=== PATIENT | male | born 1945 | race Caucasian/White ===

== ENCOUNTER 2019-01-30 13:59 | Inpatient (IN) ==
--- NOTE | 2019-01-30 14:25 | EKG Report ---
Test Performed on : 01/30/2019 2:04:23 PM Test Reason : a-fib Blood Pressure : / mmHG Vent. Rate : 162 BPM Atrial Rate : 441 BPM P-R Int : 000 ms QRS Dur : 070 ms QT Int : 278 ms P-R-T Axes : 000 059 -34 degrees QTc Int : 456 ms Atrial fibrillation. with rapid ventricular response. Nonspecific ST abnormality Abnormal QRS-T angle, consider primary T wave abnormality Abnormal ECG When compared with ECG of 26-FEB-2018 07:54, Nonspecific T wave abnormality no longer evident in Anterolateral leads Unconfirmed Result
--- NOTE | 2019-01-30 14:26 | ED EKG INTERP ---
This chart was entered by Glen Miller Scribe, acting as scribe for Raul Beltran MD. EKG Interpretation - EKG Time of EKG reading by physician:: 14:04 EKG Read and Signed by:: Raul Beltran EKG Interpretation (*Must complete 3 of following elements*): Abnormal Rate: 162 Rhythm: Atrial fibrillation with rapid ventricular response QRS: other (Abnormal QRS-T angle, consider primary T wave abnormality) ST Wave: non-specific ST changes Comments: Abnormal ECG Attestation - Physician/ ALLYSON Attestation Patient care was provided by Advanced Practice Provider:: No The physician spent face to face time with patient:: Yes Advanced Practice Provider documentation review:: Supervising physician onsite and consulted in the evaluation and care of this patient. The physician did have a face to face encounter with the patient. This chart was documented by the indicated scribe, (Glen Miller Scribe) and accurately reflects the services I performed and decisions made by me, Raul Beltran MD, as attested by the provider's signature.
[2019-01-30 14:38] LABS: INR 2.32; PROTIME 27.1 Seconds (11.0-16.0)
[2019-01-30 14:39] LABS: PTT 39.3 Seconds (22.3-41.8)
--- NOTE | 2019-01-30 14:39 | Diag Imaging Result Doc PS360 ---
EXAM: CHEST-1 VIEW HISTORY: cp TECHNIQUE: Single view COMPARISON: 02/22/2018 FINDINGS: The lungs are well expanded. The heart is mildly prominent. The vessels are not distended. There are no infiltrates. No effusion identified. IMPRESSION: Mild cardiomegaly Electronically signed by Bandar Moon 01/30/2019 2:36 PM
[2019-01-30] MEDS: CARDIZEM 125 MG/D5W 125 MG/125 ML IVPB IV SCH ×2 (14:42→23:14)
[2019-01-30 14:56] LABS: BASO# 0.02 X1000 (0.0-0.2); BASO% 0.2 % (0.0-0.8); EOS# 0.07 X1000 (0.0-0.7); EOS% 0.6 % (0.0-10.0); HEMOGLOBIN 14.2 g/dL (14.0-18.0); IMM GRAN# 0.03 X1000 (0.0-0.04); IMM GRAN% 0.3 % (0.0-0.5); LYMPH% 17.3 % (20.5-51.1); MCHC 32.3 g/dL (33-37); MCV 80.4 FL (81-99); MONO% 8.7 % (1.7-9.3); MPV 10.7 FL (7.4-10.4); NEUT# 8.44 X1000 (1.4-6.5); NEUT% 72.9 % (42.2-75.2); PLT 277 X1000 (130-400); RBC 5.47 XMIL (4.7-6.1); RDW 16.8 % (11.5-14.5); WBC 11.56 X1000 (4.8-10.8)
[2019-01-30 15:02] LABS: AGAP 11; ALB/GLOB RATIO 1.5; ALBUMIN 4.1 g/dL (3.5-5.0); ALKALINE PHOSPHATASE 94 U/L (32-122); BUN 15 mg/dL (8-22); CHLORIDE 101 mmol/L (98-107); COSMO 278; CREATININE 0.9 mg/dL (0.7-1.2); ESTIMATED GFR > 60; GLUCOSE 100 mg/dL (70-104); GOT 23 U/L (10-34); GPT 78 U/L (10-44); POTASSIUM 4.5 mmol/L (3.5-5.1); SODIUM 139 mmol/L (136-145); TCO2 27 mmol/L (25-35); TOTAL BILIRUBIN 1.18 mg/dL (0.20-1.00); TOTAL PROTEIN 6.9 g/dL (6.3-8.3)
--- NOTE | 2019-01-30 17:10 | PROVIDER DOCUMENTATION ---
This chart was entered by Glen Miller Scribe, acting as scribe for Raul Beltran MD. HPI-Cardiac General - General Chief Complaint: Palpitations Stated Complaint: a fib sent over by DR Time Seen by Provider: 01/30/19 14:18 Source: patient Allergies/Adverse Reactions: Patient Allergies Allergy/AdvReac Type Severity Reaction Status Date / Time celecoxib [From Celebrex] Allergy Severe SWELLING Verified 02/22/18 18:52 Sulfa (Sulfonamide Allergy Severe SWELLING Verified 02/22/18 18:52 Antibiotics) [Sulfa(Sulfonamide Antibiotics)] Home Medications: Home Medication List Medication Instructions Recorded Confirmed Last Taken Type Digoxin [Lanoxin] 125 microgm PO DAILY #0 tablet 05/30/12 01/30/19 11/03/15 19:00 Rx Zolpidem Tartrate [Ambien Cr] 12.5 mg PO HS 10/29/15 01/30/19 11/03/15 21:30 History Diltiazem HCl [Cartia Xt] 120 mg PO DAILY #90 cap.er.24h 02/28/18 01/30/19 Unknown Rx Metoprolol Succinate [Toprol Xl] 50 mg PO DAILY #90 tab.er.24h 02/28/18 01/30/19 Unknown Rx Rivaroxaban [Xarelto] 20 mg PO DAILY #0 02/28/18 01/30/19 10/28/15 17:00 Rx - History of Present Illness-Cardiac Nature of Presenting Problem: Pt is a 73 yom who presents to the ED with A-fib. The pt was sent to the ED by his doctor. Pt states that he began feeling a tightness and pressure in his chest yesterday morning. Pt states that the pressure was felt in the center of his chest without any radiation. Pt reports a hx of a-fib and peptic ulcers. Pt denies missing any of his heart medication. Pt states that he currently feels claustrophobic in the ED room. Location: reports: central Quality of Pain: reports: pressure, tightness Onset/Duration: 24 hours ago Timing: still present, improving History of arrythmia: reports: A-Fib Recent use of:: reports: no stimulants Associated Symptoms: reports: denies symptoms Similar Symptoms Previously?: No Recently Seen Here or By Another Healthcare Provider: No Review of Systems - Adult - REVIEW OF SYSTEMS - ADULT Constitutional: reports: see HPI. denies: chills, fever, fatique, night sweats Eyes: reports: no symptoms reported Ears, Nose, Mouth & Throat: reports: no symptoms reported Cardiovascular: reports: see HPI, irregular heart rate (A-fib). denies: edema, palpitations, syncope Respiratory: reports: no symptoms reported Gastrointestinal: reports: no symptoms reported Genitourinary: reports: no symptoms reported Musculoskeletal: reports: no symptoms reported Integumentary: reports: no symptoms reported Neurological: reports: no symptoms reported Psychiatric: reports: no symptoms reported Endocrine: reports: no symptoms reported Hematologic/Lymphatic: reports: no symptoms reported Allergic/Immunologic: reports: no symptoms reported All Other Systems: Reviewed and Negative Past History - Adult - PAST MEDICAL HISTORY-ADULT Review of Records: reports: Old Records Reviewed, Nursing Assessment Review, Medications Reviewed, Social history reviewed & non-contributory. Major Childhood Illnesses: reports: denies history Cardiovascular: reports: A-Fib Respiratory: reports: denies history Gastrointestinal: reports: GERD (Peptic ulcers) Obstetrical/Gynecological: reports: denies history Genitourinary: reports: denies history Musculoskeletal: reports: denies history Neurological: reports: denies history Psychiatric: reports: denies history Endocrine/Immune: reports: denies history Other Conditions: reports: denies history - IMMUNIZATION STATUS Childhood Immunizations: See Nurse Assessment Flu Vaccine: See Nurse Assessment - FAMILY HISTORY Family History: reviewed, not pertinent - SOCIAL HISTORY Smoking: denies, non-smoker Substance Use: none/never Alcohol Use Frequency: never Physical Exam-General - PHYSICAL EXAM-ADULT Initial Vital Signs Reviewed: Yes - CONSTITUTIONAL General Appearance: appears well, alert, mild distress - EYES Eyes: PERRL/EOMI. negative: meningismus, sclera injected, scleral icterus - NECK Neck: non-tender, full range of motion. negative: limited range of motion, lymphadenopathy, meningismus - RESPIRATORY Respiratory: chest non-tender, lungs clear, normal breath sounds, no pleuratic chest pain, no respiratory distress. negative: accessory muscle use, crackles, rales, stridor, wheezing - CARDIOVASCULAR Cardiovascular: normal peripheral pulses, no edema, no gallop, no JVD, no murmur . negative: bradycardia, diastolic murmur, gallop/S3, extra beats - GASTROINTESTINAL (ABDOMEN) Abdominal Exam: non tender, soft. negative: guarding, rigid, rebound - MUSCULOSKELETAL Extremity: normal range of motion, non-tender. negative: deformity, erythema, inflammation, swelling, tenderness - SKIN Integumentary: normal color, warm/dry. negative: ecchymosis, erythema, jaundice, laceration(s) - NEUROLOGIC Neurologic: grossly normal, no motor/sensory deficits. negative: abnormal gait, facial droop, focal weakness, motor weakness, sensory deficit - PSYCHIATRIC Psych/Mental Status: normal mood/affect, oriented x 3. negative: disoriented x 3, anxious, disheveled, paranoid - HEART Score HEART Score: History: Moderately Suspicious HEART Score: ECG: Non-Specific Repolarization Disturbance/LBBB/PM HEART Score: Age: > or = 65 Years HEART Score: Risk Factors for Atherosclerotic Disease: 1 or 2 Risk Factors HEART Score: Troponin: < or = Normal Limit Total HEART Score:: 5 Progress - PLAN OF CARE/RESULTS Progress/Plan/Lab Results: Vital Signs - 8 hr 01/30/19 14:08 01/30/19 14:28 01/30/19 14:30 Temperature 97.9 F Pulse Rate 160 H 150 H 173 H Respiratory Rate 22 22 18 Blood Pressure 123/86 O2 Sat by Pulse Oximetry 97 96 01/30/19 14:40 01/30/19 14:46 01/30/19 14:50 Temperature Pulse Rate 115 H 155 H 163 H Respiratory Rate 16 27 H 15 Blood Pressure 109/86 O2 Sat by Pulse Oximetry 95 95 93 L 01/30/19 15:00 01/30/19 15:03 Temperature Pulse Rate 116 H 136 H Respiratory Rate 23 16 Blood Pressure 126/79 O2 Sat by Pulse Oximetry 95 93 L Laboratory Results - last 24 hr 01/30/19 01/30/19 01/30/19 14:10 14:10 14:10 WBC 11.56 H RBC 5.47 Hgb 14.2 Hct 44.0 MCV 80.4 L MCH 26.0 L MCHC 32.3 L RDW Std Deviation 16.8 H Plt Count 277 MPV 10.7 H Immature Gran % (Auto) 0.3 Neut % (Auto) 72.9 Lymph % (Auto) 17.3 L [place] % (Auto) 8.7 Eos % (Auto) 0.6 Baso % (Auto) 0.2 Immature Gran # (Auto) 0.03 Neut # (Auto) 8.44 H Lymph # (Auto) 2.00 [place] # (Auto) 1.00 H Eos # (Auto) 0.07 Baso # (Auto) 0.02 PT INR PTT (Actin FS) Sodium 139 Potassium 4.5 Chloride 101 Carbon Dioxide 27 Anion Gap 11 BUN 15 Creatinine 0.9 Estimated GFR/1.73 m2 > 60 BUN/Creatinine Ratio 17 Glucose 100 Calculated Osmolality 278 Calcium 9.0 Total Bilirubin 1.18 H AST 23 ALT 78 H Alkaline Phosphatase 94 Troponin T Lzm-[id number]-Yiwtbbfeoei Pept Total Protein 6.9 Albumin 4.1 Globulin 2.8 Albumin/Globulin Ratio 1.5 Digoxin < 0.3 L 01/30/19 01/30/19 01/30/19 14:10 14:10 14:10 WBC RBC Hgb Hct MCV MCH MCHC RDW Std Deviation Plt Count MPV Immature Gran % (Auto) Neut % (Auto) Lymph % (Auto) [place] % (Auto) Eos % (Auto) Baso % (Auto) Immature Gran # (Auto) Neut # (Auto) Lymph # (Auto) [place] # (Auto) Eos # (Auto) Baso # (Auto) PT 27.1 H INR 2.32 PTT (Actin FS) 39.3 Sodium Potassium Chloride Carbon Dioxide Anion Gap BUN Creatinine Estimated GFR/1.73 m2 BUN/Creatinine Ratio Glucose Calculated Osmolality Calcium Total Bilirubin AST ALT Alkaline Phosphatase Troponin T < 0.010 Wxy-S-Qchelkibrtv Pept 1120 H Total Protein Albumin Globulin Albumin/Globulin Ratio Digoxin Orders Category Date Time Status CHEST-1 VIEW [RAD] Stat Exams 01/30/19 14:16 Completed CBC WITH ELECTRONIC DIFF [HEME] Stat Lab 01/30/19 14:10 Completed COMPREHENSIVE METABOLIC PANEL [CHEM] Stat Lab 01/30/19 14:10 Completed DIGOXIN [TDM] Stat Lab 01/30/19 14:10 Completed PRO B-NATRIURETIC PEPTIDE Stat Lab 01/30/19 14:10 Completed PT [PROTIME WITH INR] [COAG] Stat Lab 01/30/19 14:10 Completed PTT [COAG] Stat Lab 01/30/19 14:10 Completed TROPONIN T Stat Lab 01/30/19 14:10 Completed URINALYSIS [URINALYSIS] Stat Lab 01/30/19 14:15 Uncollected Diltiazem 125 mg/D5w [Cardizem 125 mg/D5w] Med 01/30/19 14:30 Active 125 mg in 125 ml IV As Directed mls/hr EKG [EKG] Stat Ther 01/30/19 14:16 Draft Result Diagrams: 01/30/19 14:10 01/30/19 14:10 - XRAY 1 XRAY Study: Chest ( Signed EXAM: CHEST-1 VIEW HISTORY: cp TECHN IQUE: Single view COMPARISON: 02/22/2018 FINDINGS: The lungs are well expanded. The heart is mildly prominent. The vessels are not distended. There are no infiltrates. No effusion identified. IMPRESSION: Mild cardiomegaly Electronically signed by Bandar Moon 01/30/2019 2:36 PM 01/30/19 1436 Interpreting Physician: Bandar Moon MD Dictated Date/Time: 01/30/19 1435 cc: Raul Beltran MD; Augustnie Montalvo MD) Impression: See EMR Report - CONSULTS/PCP/HOSPITALIST Notification #1 *Consult/PCP/Hospitalist*: Dr Tineo Time Discussed: 17:08 Consult Disposition: Will see in ED, Admit Departure - Departure Date of Disposition Decision: 01/30/19 Time of Disposition Decision: 17:08 DIAGNOSIS: Atrial fibrillation with RVR, Chest pain, CHF (congestive heart failure) Disposition: ADMITTED INPATIENT 09 Certified Medical Emergency: Emergent Condition: Fair Referrals and Follow-Ups: Augustine Montalvo MD [Primary Care Provider] - - Critical Care Note This patient required my direct & personal management of CC.: No Attestation - Physician/ ALLYSON Attestation Patient care was provided by Advanced Practice Provider:: No The physician spent face to face time with patient:: Yes Advanced Practice Provider documentation review:: Supervising physician onsite and consulted in the evaluation and care of this patient. The physician did have a face to face encounter with the patient. This chart was documented by the indicated scribe, (Glen Miller, Marguerite) and accurately reflects the services I performed and decisions made by me, Raul Beltran MD, as attested by the provider's signature.
[2019-01-30 17:44] LABS: URINE SOURCE CLEAN CATCH
[2019-01-30 17:47] LABS: BILIRUBIN URINE NEGATIVE (NEGATIVE); BLOOD URINE NEGATIVE (NEGATIVE); COLOR YELLOW; GLUCOSE URINE NEGATIVE (NEGATIVE); KETONE URINE NEGATIVE (NEGATIVE); LEUKOCYTES URINE NEGATIVE (NEGATIVE); NITRITE URINE NEGATIVE (NEGATIVE); PROTEIN URINE NEGATIVE (NEGATIVE); SP GRAVITY URINE 1.021; TURBIDITY URINE CLEAR (CLEAR); UROBILINOGEN URINE 4 mg/dL (NORMAL)
[2019-01-30 17:48] LABS: UR EPITHELIAL CELLS <10 /HPF (<10); URINE BACTERIA NEGATIVE /HPF; URINE RBC <10 /HPF (<10); URINE WBC <10 /HPF (<10)
--- NOTE | 2019-01-30 17:59 | HISTORY AND PHYSICAL ---
HISTORY OF PRESENT ILLNESS: Mr. Kaufman is a 73-year-old. I think Dr. Augustine Montalvo is his doctor. His desilverizer is Dr. Pierre Hinton. Dr. Augustine Montalvo had sent him over to Dr. Pierre Hinton and he was in atrial fibrillation with rapid rate. His story is that yesterday evening, the day before admission he started having some pressure and chest discomfort and palpitations and feeling a little bit short of breath and he woke up early this morning again with more of the sensation. On the monitor he is in atrial fibrillation with rapid ventricular rate. PAST MEDICAL HISTORY: 1. Coronary artery disease with a history of congestive heart failure. 2. Benign prostatic hypertrophy status post TURP. 3. He has had, I think, a bleeding ulcer. He was admitted a couple years ago for that. PAST SURGICAL HISTORY: Colonoscopy, cystoscopy, tooth extraction. SOCIAL HISTORY: Negative for alcohol or tobacco. No illicit drugs. ALLERGIES: He is allergic to sulfa drugs and Celebrex. REVIEW OF SYSTEMS: General: No weight gain or loss. No fever or chills. HEENT: Unremarkable. Respiratory: No increased work of breathing or dyspnea. Cardiovascular: Palpitations, chest pressure, history of atrial fib. GI and : No gross hematuria or dysuria. History of benign prostatic hypertrophy. History of TURP in the past. Musculoskeletal/Neurologic: No focal complaints. Endocrinologic/Hematologic: No significant history. PHYSICAL EXAMINATION: VITAL SIGNS: Temperature 97.9 degrees, pulse 136, respirations 16, blood pressure 126/79. Weight 290 pounds. O2 saturation is 93%. HEENT: Pupils are equal and round. LUNGS: Clear in all lung trotter. CARDIOVASCULAR: Regular rhythm and rate without murmur or S3. ABDOMEN: Soft. SKIN: Warm and dry. EXTREMITIES: I did appreciate pedal edema. NECK: Supple. LAB: White count 11,560, hematocrit 44, platelet count 277,000. Sodium 139, potassium 4.5, chloride 101, BUN 15, creatinine 0.9. AST was 23, ALT 28, alkaline phos 94. Troponin was less than 0.01. Albumin is 4.1. PTT is 27, INR is 2.32. Digoxin less than 0.3. Chest x-ray: Mild cardiomegaly. Lungs well expanded. No infiltrates. ASSESSMENT AND PLAN: 1. Atrial fibrillation with rapid ventricular rate. The patient is on digoxin 125 mcg p.o. daily. I think we can go ahead and give him 0.25 mg IV of digoxin. He takes Cardizem 120 mg p.o. daily. I think what we will try tonight is in addition to that add 30 mg of Cardizem p.o. q.6 hours. We will continue his Toprol-XL 50 mg daily. He is already on Xarelto 20 mg a day and we will continue that. 2. History of congestive heart failure. I believe his ejection fraction last measured was around 50%. 3. I saw in previous history that there is a history of coronary artery disease, but he did not have any details on that. 4. Benign prostatic hypertrophy status post TURP. Review of his lab I do not see any renal dysfunction or significant electrolyte abnormality. He did have an elevation of his ALT of 78. AST was 23. This may be due to fatty liver and it may be worthwhile to get an ultrasound of his liver and just look for fatty liver. We will check T4 and TSH, B12 and folate. Will check electrolytes again in the morning including magnesium. We will check serial troponin and CK and get some serial EKGs as well. Try to move him to [facility] and ask Cardiology to help evaluate. cc: Dung Nam MD
[2019-01-30] MEDS ORDERED: ZOFRAN IV PRN (19:23)
[2019-01-30] MEDS ORDERED: TYLENOL PO PRN (19:23)
[2019-01-30] MEDS ORDERED: NITROGLYCERIN SL PRN (19:23)
[2019-01-30] MEDS ORDERED: AMBIEN CR PO SCH (22:45)
[2019-01-30] MEDS: CARDIZEM PO SCH (23:52)
[2019-01-31] MEDS: AMBIEN PO SCH ×2 (00:47→22:23)
[2019-01-31] MEDS: LANOXIN IV ONE ×2 (01:32→01:51)
[2019-01-31] MEDS: CARDIZEM PO SCH ×2 (01:33→09:05)
[2019-01-31] MEDS: PRILOSEC PO SCH ×2 (05:32→06:29)
[2019-01-31 05:35] LABS: WBC 10.53 X1000 (4.8-10.8)
[2019-01-31 05:36] LABS: BASO# 0.02 X1000 (0.0-0.2); BASO% 0.2 % (0.0-0.8); EOS% 0.9 % (0.0-10.0); HEMATOCRIT 41.2 % (42.0-52.0); HEMOGLOBIN 13.3 g/dL (14.0-18.0); IMM GRAN# 0.03 X1000 (0.0-0.04); IMM GRAN% 0.3 % (0.0-0.5); LYMPH# 1.98 X1000 (1.2-3.4); LYMPH% 18.8 % (20.5-51.1); MCH 26.2 PG (27-31); MCHC 32.3 g/dL (33-37); MCV 81.1 FL (81-99); MONO# 0.91 X1000 (0.11-0.59); MONO% 8.6 % (1.7-9.3); MPV 10.4 FL (7.4-10.4); NEUT# 7.49 X1000 (1.4-6.5); NEUT% 71.2 % (42.2-75.2); PLT 249 X1000 (130-400); RBC 5.08 XMIL (4.7-6.1); RDW 16.7 % (11.5-14.5)
[2019-01-31 06:05] LABS: AGAP 11; ALB/GLOB RATIO 1.1; ALBUMIN 3.5 g/dL (3.5-5.0); ALKALINE PHOSPHATASE 86 U/L (32-122); BUN 15 mg/dL (8-22); CALCIUM 8.7 mg/dL (8.8-10.2); CHLORIDE 102 mmol/L (98-107); CHOLESTEROL 155 mg/dL (0-200); COSMO 278; CREATININE 0.9 mg/dL (0.7-1.2); ESTIMATED GFR > 60; GLUCOSE 99 mg/dL (70-104); GOT 15 U/L (10-34); GPT 65 U/L (10-44); HDL 32 mg/dL (35-55); LDL 109 mg/dL; MAGNESIUM 2.2 mg/dL (1.5-2.7); POTASSIUM 3.9 mmol/L (3.5-5.1); SODIUM 139 mmol/L (136-145); TCO2 26 mmol/L (25-35); TOTAL BILIRUBIN 1.18 mg/dL (0.20-1.00); TOTAL PROTEIN 6.7 g/dL (6.3-8.3); TRIGLYCERIDES 70 mg/dL (39-160); VLDL 14 mg/dL
[2019-01-31 06:31] LABS: FREE T4 1.45 ng/dL (0.93-1.70)
[2019-01-31 06:36] LABS: TSH 6.04 uIUmL (0.27-4.20)
[2019-01-31 06:51] LABS: DIGOXIN < 0.3 ng/mL (0.9-2.0)
--- NOTE | 2019-01-31 07:21 | EKG Report ---
Test Performed on : 01/31/2019 06:58:52 AM Test Reason : afib rvr Blood Pressure : / mmHG Vent. Rate : 121 BPM Atrial Rate : 131 BPM P-R Int : 000 ms QRS Dur : 076 ms QT Int : 334 ms P-R-T Axes : 000 069 040 degrees QTc Int : 474 ms Atrial fibrillation. with rapid ventricular response. Nonspecific ST abnormality Abnormal ECG When compared with ECG of 30-JAN-2019 14:04, (Unconfirmed) No significant change was found Confirmed by Selvin MADDOX, Augustine Timmons ([id number]) on 01/31/2019 6:39:13 PM
--- NOTE | 2019-01-31 07:48 | Diag Imaging Result Doc PS360 ---
CHEST-PORTABLE - 01/31/2019 INDICATION: Chest Pain COMPARISON: 01/30/2019 FINDINGS: The lungs are normally expanded and clear. Heart size and mediastinal contours are normal. No pneumothorax or pleural effusion. IMPRESSION: Negative exam. Electronically signed by Yaya Hernandez 01/31/2019 7:45 AM
[2019-01-31] MEDS: CARDIZEM 125 MG/D5W 125 MG/125 ML IVPB IV SCH ×2 (08:05→17:10)
--- NOTE | 2019-01-31 08:53 | Diag Imaging Result Doc PS360 ---
US GB < RUQ (LIMITED) - 01/31/2019 INDICATION: elevated lft evaluate fatty liver TECHNIQUE: COMPARISON: 02/17/2011 FINDINGS: The liver is extremely fatty. No liver masses. No biliary dilation. The gallbladder is normal. Common bile duct measures 6 mm. The pancreas is obscured. Aorta, IVC, and main portal vein are obscured. The right kidney is normal. IMPRESSION: Advanced hepatic steatosis. Electronically signed by Yaya Hernandez 01/31/2019 8:50 AM
[2019-01-31] MEDS ORDERED: TOPROL XL PO SCH (09:00)
[2019-01-31] MEDS ORDERED: CARDIZEM CD PO SCH (09:00)
[2019-01-31] MEDS ORDERED: XARELTO PO SCH (09:00)
[2019-01-31] MEDS: LANOXIN PO SCH (09:06)
[2019-01-31] MEDS: TOPROL XL PO SCH ×2 (09:06→20:15)
[2019-01-31] MEDS: XARELTO PO SCH (09:06)
--- NOTE | 2019-01-31 11:48 | PROGRESS NOTE ---
DATE: 01/31/2019 SUBJECTIVE: This patient is lying comfortably in bed. He feels better. Heart rate is better controlled, but still slightly elevated. Cardiology department has been adjusting his medications. We will continue to monitor. OBJECTIVE: Vital Signs: Temperature 98.1 degrees, pulse 114, respiratory rate 18, blood pressure 107/74 and oxygen saturation 97% on room air. HEENT: Head normocephalic. No trauma. PERRLA. Neck: Supple. No JVD. No masses. Central trachea. Chest: Clear to auscultation. No wheezing. No rales. Cardiovascular: Irregularly irregular rate and rhythm. Tachycardic. Abdomen: Soft, protuberant. Positive bowel sounds. Extremities: No edema. No clubbing. No cyanosis. Neurological: The patient is alert and oriented x3. No focal deficits. LABORATORY: WBC 10.5, hemoglobin 13.3, hematocrit 41.2, and platelets 249,000. Sodium 139, potassium 3.9, chloride 102, bicarbonate 26, BUN 15, creatinine 0.9, glucose 99, calcium 8.7, total bilirubin 1.1, AST 15, ALT 65, alkaline phosphatase 86, and magnesium 2.2. ASSESSMENT AND PLAN: 1. Atrial fibrillation with RVR. The rate is a little bit better controlled, but still slightly elevated. We will continue following the recommendations of Cardiology Department. He has been on Xarelto already. He is feeling better compared with admission. We will monitor. 2. History of congestive heart failure. He had an echocardiogram done on 02/24/2018 that showed an ejection fraction greater than 55%. Actually, he has a history of cardiomyopathy in the past and it looks like ultimately normalizing left ventricular systolic function. 3. BPH, status post TURP aware. Continue with same management. 4. Elevated LFTs likely secondary to fatty liver. cc: Sundeep Marie MD
--- NOTE | 2019-01-31 16:19 | ECHO REPORT ---
ORDER DATE: 01/31/2019 ECHOCARDIOGRAPHIC MEASUREMENTS: 1. Interventricular septum 1.3. 2. Left ventricular posterior wall 1.3. 3. Diastolic diameter 4.1. 4. Left atrium 3.9. 5. Aorta 3.6. SUMMARY: 2D echocardiogram technically suboptimal study. Poor acoustic window. 1. Aortic valve leaflets were trileaflet. 2. Pulmonic valve not well visualized. 3. Mitral valve was normal. 4. There was mitral annular calcification. 5. Tricuspid valve was normal. 6. There is mild left atrial enlargement. 7. There is mild mitral regurgitation. 8. Peak velocity across the aortic valve less than 2 m/sec. There is no aortic stenosis or regurgitation. 9. Peak velocity across the tricuspid valve was 2.3 m/sec. 10. Pulmonary artery systolic pressure of 32 mmHg. 11. Atrial fibrillation was noted. 12. Anterior echo-free space history of pericardial fat pad. 13. There is no pericardial effusion. 14. Optison was used to assess left ventricular systolic function and endocardial delineation. Normal left ventricular cavity size. Mild left ventricular hypertrophy. 15. Estimated ejection fraction of 60 to 65 percent. cc: Bunny Brito MD
[2019-01-31] MEDS ORDERED: LANOXIN IV ONE (16:55)
--- NOTE | 2019-01-31 19:30 | PROGRESS NOTE ---
DATE: 01/31/2019 SUMMARY: The patient has chest discomfort, dyspnea on room air. Is currently still on intravenous diltiazem drip. OBJECTIVE: Blood pressure 122/66, heart rate 80 and irregular with ECG monitor showing atrial fibrillation. Oxygen saturation 98% on room air. Neck: There is no significant jugular venous distention. Chest: Clear to auscultation bilaterally. Cardiac: Reveals an irregular rate and rhythm without appreciable murmur or gallop. There is no evidence of peripheral edema. LABORATORY DATA: Includes white blood cell count 10.53, hematocrit 41.2, hemoglobin 13.3, platelet count 249,000 sodium 139, potassium 3.9, chloride 102 carbon dioxide 26, BUN 15 creatinine 0.9. Glucose 99, initial troponin less than 0.01. Followup troponin less than 0.01. TSH 6.04. Echocardiography reports normal left ventricular systolic function with estimated left ejection fraction of 60-65%. There is mild left ventricular hypertrophy and mild mitral regurgitation. IMPRESSION: 1. Atrial fibrillation with rapid ventricular rate in setting of chronic atrial fibrillation. The patient still requiring intravenous diltiazem drip. 2. Atherosclerotic coronary disease. Patient has had recent chest discomfort, possibly angina and potentially provoked by atrial fibrillation with rapid ventricular rate. 3. Hypertensive cardiovascular disease. RECOMMENDATIONS: 1. Give additional digoxin intravenously to try and improve rate control and facilitate withdrawal of intravenous diltiazem. Continue metoprolol 50 mg twice daily and diltiazem CD 120 mg daily. 2. Screen for inducible myocardial ischemia with Lexiscan myocardial perfusion imaging. cc: Pierre Hinton MD
[2019-02-01 05:34] LABS: BASO# 0.03 X1000 (0.0-0.2); BASO% 0.3 % (0.0-0.8); EOS# 0.13 X1000 (0.0-0.7); EOS% 1.3 % (0.0-10.0); HEMATOCRIT 42.8 % (42.0-52.0); HEMOGLOBIN 13.7 g/dL (14.0-18.0); IMM GRAN# 0.05 X1000 (0.0-0.04); IMM GRAN% 0.5 % (0.0-0.5); LYMPH# 1.72 X1000 (1.2-3.4); LYMPH% 17.1 % (20.5-51.1); MCV 81.2 FL (81-99); MONO# 1.02 X1000 (0.11-0.59); MONO% 10.2 % (1.7-9.3); MPV 10.7 FL (7.4-10.4); NEUT# 7.09 X1000 (1.4-6.5); NEUT% 70.6 % (42.2-75.2); PLT 235 X1000 (130-400); RBC 5.27 XMIL (4.7-6.1); RDW 16.6 % (11.5-14.5); WBC 10.04 X1000 (4.8-10.8)
[2019-02-01] MEDS: PRILOSEC PO SCH (06:12)
[2019-02-01 06:14] LABS: AGAP 10; ALBUMIN 3.4 g/dL (3.5-5.0); ALKALINE PHOSPHATASE 87 U/L (32-122); BUN 15 mg/dL (8-22); CALCIUM 8.3 mg/dL (8.8-10.2); CHLORIDE 102 mmol/L (98-107); COSMO 280; ESTIMATED GFR > 60; GLUCOSE 92 mg/dL (70-104); GOT 12 U/L (10-34); GPT 52 U/L (10-44); POTASSIUM 4.2 mmol/L (3.5-5.1); SODIUM 140 mmol/L (136-145); TCO2 28 mmol/L (25-35); TOTAL BILIRUBIN 0.88 mg/dL (0.20-1.00); TOTAL PROTEIN 6.7 g/dL (6.3-8.3)
[2019-02-01] MEDS ORDERED: CARDIZEM CD PO SCH (09:00)
[2019-02-01] MEDS ORDERED: LEXISCAN ONE (10:18)
[2019-02-01] MEDS ORDERED: LOPRESSOR ONE (10:42)
[2019-02-01] MEDS: CARDIZEM CD PO SCH (12:26)
[2019-02-01] MEDS: XARELTO PO SCH (12:26)
[2019-02-01] MEDS: TOPROL XL PO SCH ×2 (12:26→20:36)
[2019-02-01] MEDS: LANOXIN PO SCH (12:26)
--- NOTE | 2019-02-01 13:12 | Diag Imaging Result Document ---
PROCEDURE NAME: MYOCARDIAL PERF SCAN, STR/REST - 01/31/2019 INDICATION: Chest pain. PROCEDURES PERFORMED: 1. Lexiscan stress. 2. One-day stress rest myocardial perfusion imaging. PROCEDURE IN DETAIL: Mr. Kaufman was brought to the nuclear laboratory and had a resting study with injection of 15.9 mCi of technetium-99m sestamibi with usual imaging protocol utilized. Subsequently, he was brought back and had a Lexiscan stress. At peak stress, was injected with 47.5 mCi of technetium-99m sestamibi to usual imaging protocol utilized. FINDINGS: 1. Baseline EKG shows atrial fibrillation. 2. Lexiscan stress did not demonstrate any clear evidence of ischemic related EKG changes or significant arrhythmias. The patient remained in atrial fibrillation during the course of the study. PERFUSION IMAGING RESULTS: 1. No evidence of abnormal extracardiac uptake. 2. TID ratio 0.94. 3. Perfusion imaging seems to demonstrate a very small sized, mild intensity, fixed defect in the mid inferior wall. Wall motion appears to be intact in this area suggesting soft tissue attenuation. 4. There is a normal ejection fraction of 61%. End-diastolic volume is 73 and systolic volume 28. cc: MD Pierre Talbot MD
[2019-02-01] MEDS ORDERED: LANOXIN IV ONE (14:02)
[2019-02-01] MEDS: CARDIZEM 125 MG/D5W 125 MG/125 ML IVPB IV SCH (18:04)
--- NOTE | 2019-02-01 18:52 | PROGRESS NOTE ---
DATE: 02/01/2019 SUBJECTIVE: Patient is lying comfortably in bed. He feels better. He has been placed back on the Cardizem drip because he started having RVR again prior to the stress test. OBJECTIVE: Vital Signs: Temperature 98.6 degrees, pulse 91, respiratory rate 17, blood pressure 128/82 and oxygen saturation 99 percent on room air. HEENT: Head normocephalic. No trauma. PERRLA. Neck: Supple. No JVD. No masses. Central trachea. Chest: Clear to auscultation. No wheezing. No rales. Cardiovascular: Irregularly irregular rate and rhythm. Abdomen: Soft, protuberant. Positive bowel sounds. Extremities: Trace edema. No clubbing. No cyanosis. Neurological: The patient is alert and oriented x3. No focal deficits. LABORATORY: WBC 10, hemoglobin 13.7, hematocrit 42.8, and platelets 235,000. Sodium 140, potassium 4.2, chloride 102, bicarbonate 28, BUN 15, creatinine 1, glucose 92, calcium 8.3, AST 12, ALT 52, alkaline phosphatase 887, and albumin 3.4. ASSESSMENT AND PLAN: 1. Atrial fibrillation with RVR. She started having RVR again today prior to the stress test. He is feeling fine. The rate has been stable at this moment with the drip. I will continue following the recommendations of Cardiology Department. 2. History of congestive heart failure. He had an ejection fraction that is greater than 55%, and actually he has a history of cardiomyopathy in the past. It looks like ultimately he has been normalizing his left ventricular systolic function. 3. BPH, status post TURP, aware. Continue with same management. 4. Elevated liver function tests, likely secondary to fatty liver. cc: Sundeep Marie MD
[2019-02-01] MEDS: AMBIEN PO SCH (20:36)
[2019-02-02 06:12] LABS: AGAP 13; BUN 12 mg/dL (8-22); CALCIUM 8.6 mg/dL (8.8-10.2); CHLORIDE 101 mmol/L (98-107); COSMO 275; ESTIMATED GFR > 60; GLUCOSE 89 mg/dL (70-104); POTASSIUM 4.2 mmol/L (3.5-5.1); SODIUM 138 mmol/L (136-145); TCO2 24 mmol/L (25-35)
[2019-02-02] MEDS: PRILOSEC PO SCH (06:28)
[2019-02-02] MEDS: XARELTO PO SCH (08:23)
[2019-02-02] MEDS: TOPROL XL PO SCH ×2 (08:23→20:22)
[2019-02-02] MEDS: CARDIZEM CD PO SCH (08:24)
[2019-02-02] MEDS: LANOXIN PO SCH (08:24)
--- NOTE | 2019-02-02 10:33 | PROGRESS NOTE ---
DATE: 02/02/2019 SUBJECTIVE: Patient is lying comfortably in bed, no symptoms, he is still on the Cardizem drip, he had an episode of atrial fibrillation with rapid ventricular response yesterday during the night. I will wait for Cardiology recommendations. OBJECTIVE: Vital Signs: Temperature 98 degrees, pulse 83, respiratory rate 16, blood pressure 116/66, oxygen saturation 96 on room air. HEENT: Head normocephalic, no trauma. PERRLA. Neck: Supple. No JVD. No masses. Central trachea. Chest: Clear to auscultation. No wheezing. No rales. Cardiovascular: Irregularly irregular rate and rhythm. Abdomen: Soft, protuberant. Positive bowel sounds. Extremities: Trace edema. No clubbing, no cyanosis. Neurological: This patient is completely alert and oriented x3. No focal neurological deficits. LABORATORY DATA: Sodium 138, potassium 4.2, chloride 101, bicarbonate 24, BUN 12, creatinine 1, glucose 89, calcium 8.6. ASSESSMENT AND PLAN: 1. Atrial fibrillation with rapid ventricular response, he is still on the Cardizem drip. We will continue to monitor. We will continue with p.o. treatment as well. I will wait for Cardiology recommendations. 2. History of congestive heart failure, he had an ejection fraction that is greater than 55%, and actually he has a history of cardiomyopathy in the past and it looks like ultimately he has been normalizing his left ventricular systolic function. 3. History of cardiomyopathy in the past, as above. 4. Benign prostatic hypertrophy status post transurethral resection of the prostate, aware. Continue with the same management. 5. Elevated liver function tests, likely secondary to fatty liver. cc: Sundeep Marie MD
[2019-02-02] MEDS: CARDIZEM 125 MG/D5W 125 MG/125 ML IVPB IV SCH (14:12)
[2019-02-02] MEDS: AMBIEN PO SCH (22:52)
[2019-02-03] MEDS: PRILOSEC PO SCH (06:14)
[2019-02-03 06:24] LABS: AGAP 10; BUN 12 mg/dL (8-22); CALCIUM 8.6 mg/dL (8.8-10.2); CHLORIDE 101 mmol/L (98-107); COSMO 274; CREATININE 0.9 mg/dL (0.7-1.2); ESTIMATED GFR > 60; GLUCOSE 103 mg/dL (70-104); MAGNESIUM 2.4 mg/dL (1.5-2.7); PHOSPHORUS 3.3 mg/dL (2.7-4.5); POTASSIUM 4.5 mmol/L (3.5-5.1); SODIUM 137 mmol/L (136-145); TCO2 26 mmol/L (25-35)
--- NOTE | 2019-02-03 07:53 | PROGRESS NOTE ---
DATE: 02/01/2019 SUBJECTIVE: Patient is lying comfortably in bed. No symptoms. He is still on the Cardizem drip. He has been having on and off episodes of RVR. I will wait for cardiology recommendations. OBJECTIVE: Vital Signs: Temperature 98.7 degrees, pulse 75, respiratory rate 15, blood pressure 108/65, oxygen saturation 96 on room air. HEENT: Head normocephalic. No trauma. PERRLA. Neck: Supple. No JVD. No masses. Central trachea. Chest: Clear to auscultation. No wheezing. No rales. Cardiovascular: Irregularly irregular rate and rhythm. Abdomen: Soft, protuberant. Positive bowel sounds. Extremities: Trace edema. No clubbing, no cyanosis. Neurological: This patient is alert and oriented x3. No focal deficits. LABORATORY: Sodium 137, potassium 4.5, chloride 101, bicarbonate 26, BUN 12, creatinine 0.9, glucose 103, calcium 8.6, magnesium 2.4. ASSESSMENT AND PLAN: 1. Atrial fibrillation with rapid ventricular response. He is still on the Cardizem drip. We will continue to monitor. Cardiology Department on board. I will wait for recommendations. 2. History of congestive heart failure. He has an ejection fraction that is greater than 55%, and actually he has a history of cardiomyopathy in the past, and it looks like ultimately he has been normalizing his left ventricular systolic function. 3. History of cardiomyopathy in the past, as above. 4. Benign prostatic hypertrophy, status post transurethral resection of the prostate, aware. Continue with same management. 5. Elevated liver function tests, likely secondary to fatty liver. cc: Sundeep Marie MD
[2019-02-03] MEDS: CARDIZEM CD PO SCH (09:17)
[2019-02-03] MEDS: XARELTO PO SCH (09:17)
[2019-02-03] MEDS: TOPROL XL PO SCH ×2 (09:17→21:17)
[2019-02-03] MEDS: LANOXIN PO SCH (09:17)
[2019-02-03] MEDS ORDERED: BETAPACE PO ONE (11:59)
[2019-02-03] MEDS: BETAPACE PO SCH (21:17)
[2019-02-03] MEDS: AMBIEN PO SCH (22:44)
[2019-02-04 05:27] LABS: BASO# 0.05 X1000 (0.0-0.2); BASO% 0.5 % (0.0-0.8); EOS# 0.09 X1000 (0.0-0.7); HEMATOCRIT 46.6 % (42.0-52.0); HEMOGLOBIN 15.2 g/dL (14.0-18.0); IMM GRAN# 0.04 X1000 (0.0-0.04); IMM GRAN% 0.4 % (0.0-0.5); LYMPH# 1.74 X1000 (1.2-3.4); LYMPH% 18.6 % (20.5-51.1); MCH 26.4 PG (27-31); MCHC 32.6 g/dL (33-37); MONO# 0.83 X1000 (0.11-0.59); MONO% 8.9 % (1.7-9.3); MPV 10.5 FL (7.4-10.4); NEUT% 70.6 % (42.2-75.2); PLT 238 X1000 (130-400); RBC 5.75 XMIL (4.7-6.1); RDW 16.9 % (11.5-14.5); WBC 9.35 X1000 (4.8-10.8)
[2019-02-04 05:59] LABS: AGAP 5; BUN 12 mg/dL (8-22); CALCIUM 8.7 mg/dL (8.8-10.2); CHLORIDE 102 mmol/L (98-107); COSMO 276; CREATININE 1.1 mg/dL (0.7-1.2); ESTIMATED GFR > 60; GLUCOSE 103 mg/dL (70-104); POTASSIUM 4.1 mmol/L (3.5-5.1); SODIUM 138 mmol/L (136-145); TCO2 31 mmol/L (25-35)
--- NOTE | 2019-02-04 06:58 | EKG Report ---
Test Performed on : 02/04/2019 06:41:17 AM Test Reason : pre cvn Blood Pressure : / mmHG Vent. Rate : 102 BPM Atrial Rate : 163 BPM P-R Int : 000 ms QRS Dur : 076 ms QT Int : 350 ms P-R-T Axes : 000 065 026 degrees QTc Int : 456 ms Atrial fibrillation. with rapid ventricular response. Nonspecific ST and T wave abnormality Abnormal ECG When compared with ECG of 31-JAN-2019 06:58, No significant change was found Confirmed by Viv MADDOX, Dung Juarez ([id number]) on 02/06/2019 9:40:26 AM
--- NOTE | 2019-02-04 08:15 | PROGRESS NOTE ---
DATE: 02/04/2019 SUBJECTIVE: The patient is lying comfortably in bed. No symptoms. He is n.p.o., and it looks like he has been scheduled to get a possible VAISHALI with cardioversion. Cardiology Department on board. They adjusted his medications yesterday. OBJECTIVE: Vital Signs: Temperature 97.9 degrees, pulse 89, respiratory rate 21, blood pressure 110/72, oxygen saturation 96 on room air. HEENT: Head normocephalic. No trauma. PERRLA. Neck: Supple. No JVD. No masses. Central trachea. Chest: Clear to auscultation. No wheezing. No rales. Cardiovascular: Irregularly irregular rate and rhythm. Abdomen: Soft, protuberant. Positive bowel sounds. Extremities: Trace edema. No clubbing. No cyanosis. Neurological: This patient is alert and oriented x3. No focal deficits. LABORATORY DATA: WBC 9.3, hemoglobin 15.2, hematocrit 46.6, platelets 238,000. Sodium 138, potassium 4.1, chloride 102, bicarbonate 31, BUN 12, creatinine 1.1, glucose 103, calcium 8.7. ASSESSMENT AND PLAN: 1. Atrial fibrillation with rapid ventricular response. This patient has been evaluated again yesterday by Cardiology Department, and he has been placed nothing by mouth. They have modified his medications. Likely, he will have a transesophageal echocardiogram with cardioversion today due to recurrent rapid ventricular response. 2. History of congestive heart failure. Recently, he has an ejection fraction that is greater than 55%, and actually he has a history of cardiomyopathy in the past, and it looks like ultimately he has been normalizing his left ventricular systolic function. 3. History of cardiomyopathy in the past, as above. 4. Benign prostatic hypertrophy, status post transurethral resection of prostate. Aware. Continue with the same management. 5. Elevated liver function tests, likely secondary to fatty liver. cc: Sundeep Marie MD
[2019-02-04] MEDS: CARDIZEM CD PO SCH (08:32)
[2019-02-04] MEDS: PRILOSEC PO SCH (08:32)
[2019-02-04] MEDS: XARELTO PO SCH (08:33)
[2019-02-04] MEDS: BETAPACE PO SCH ×2 (08:33→20:55)
[2019-02-04] MEDS: TOPROL XL PO SCH (08:33)
[2019-02-04] MEDS ORDERED: DIPRIVAN 1% ONE (11:34)
[2019-02-04] MEDS ORDERED: ANESTHESIA PB SET 88 IN 5742 ONE (11:49)
[2019-02-04] MEDS ORDERED: NS 1,000 ML ONE (11:49)
[2019-02-04] MEDS ORDERED: CLAVE TWINSITE 32 IN 11959 ONE (11:49)
[2019-02-04] MEDS ORDERED: LOPRESSOR ONE (11:55)
[2019-02-04] MEDS ORDERED: CARDIZEM 100 MG/NS 100 MG/100 ML IVPB IV SCH (12:15)
--- NOTE | 2019-02-04 12:28 | CARDIAC CATH REPORT ---
DATE: 02/04/2019 PROCEDURE PERFORMED: Cardioversion. INDICATION: Persistent atrial fibrillation. DESCRIPTION OF PROCEDURE: The patient was brought to the cardiac chemical lab technician. He had been treated with sotalol, Toprol and Cardizem. He received intravenous propofol under the anesthesia services of Dr. Mccormick. The pads were positioned in anterior posterior location. Once the patient was adequately sedated, he received a single synchronized counter shock to the chest cage consisting of 120 sandoval per second. Her converted to sinus rhythm with significant sinus bradycardia and a long pause of several seconds, at least 6 to 8 seconds. Then sinus mechanism resumed, and within a couple of minutes after he had return to sinus rhythm, he converted back into atrial fibrillation with rapid response. He woke up from the effects of anesthesia without deficit. CONCLUSIONS: In summary, this was an initially successful cardioversion; however, the patient very quickly converted back to atrial fibrillation. RECOMMENDATIONS: At this time, we will go up on his doses of sotalol to 120 mg twice a day, stop Toprol, continue low dose Cardizem to control his rate, and then reschedule the procedure in 48 hours when the levels of sotalol have hopefully achieved a steady state in his system. The patient tolerated the procedure well. cc: Eulogio Trujillo MD
--- NOTE | 2019-02-04 14:54 | EKG Report ---
Test Performed on : 02/04/2019 12:31:38 PM Test Reason : post cardioversion Blood Pressure : / mmHG Vent. Rate : 083 BPM Atrial Rate : 326 BPM P-R Int : 000 ms QRS Dur : 078 ms QT Int : 384 ms P-R-T Axes : 000 060 041 degrees QTc Int : 451 ms Atrial fibrillation. Abnormal ECG When compared with ECG of 04-FEB-2019 06:41, (Unconfirmed) No significant change was found Confirmed by Viv MADDOX, Dung Juarez ([id number]) on 02/06/2019 9:41:43 AM
[2019-02-04] MEDS: AMBIEN PO SCH (22:43)
[2019-02-05] MEDS: PRILOSEC PO SCH (06:17)
[2019-02-05 06:34] LABS: AGAP 10; BUN 15 mg/dL (8-22); CALCIUM 8.4 mg/dL (8.8-10.2); CHLORIDE 102 mmol/L (98-107); COSMO 276; ESTIMATED GFR > 60; GLUCOSE 90 mg/dL (70-104); POTASSIUM 4.1 mmol/L (3.5-5.1); SODIUM 138 mmol/L (136-145); TCO2 26 mmol/L (25-35)
--- NOTE | 2019-02-05 07:37 | EKG Report ---
Test Performed on : 02/05/2019 07:00:14 AM Test Reason : afib Blood Pressure : / mmHG Vent. Rate : 094 BPM Atrial Rate : 300 BPM P-R Int : 000 ms QRS Dur : 078 ms QT Int : 362 ms P-R-T Axes : 000 073 055 degrees QTc Int : 452 ms Atrial fibrillation. Nonspecific ST abnormality Abnormal ECG When compared with ECG of 04-FEB-2019 12:31, (Unconfirmed) No significant change was found Confirmed by Viv MADDOX, Dung Juarez ([id number]) on 02/06/2019 9:43:03 AM
[2019-02-05] MEDS: BETAPACE PO SCH ×2 (08:21→20:22)
[2019-02-05] MEDS: XARELTO PO SCH (08:21)
--- NOTE | 2019-02-05 16:55 | PROGRESS NOTE ---
DATE: 02/05/2019 INTERVAL HISTORY: The patient is status post attempted cardioversion yesterday but went back into atrial fibrillation almost immediately. When he first went back into atrial fibrillation he had a rapid rate but this appears to have improved fairly quickly and rate controlled all night. No new complaints. No current chest pain. No other acute events. REVIEW OF SYSTEMS: Twelve point review of systems negative except as per interval history. LABS: Basic metabolic panel unremarkable. VITAL SIGNS: T-max 98.5 degrees, pulse 80, respirations 20, blood pressure 123/65, O2 saturation 97% on room air. PHYSICAL EXAMINATION: General: No acute distress. Vital signs: As above. HEENT: Normocephalic, atraumatic. Moist mucous membranes. No cervical adenopathy. Cardiovascular: Irregular rhythm but normal rate. No murmurs noted. Pulmonary: Clear to auscultation bilaterally. No wheezing, rales, or rhonchi. Abdomen: Soft, nontender, nondistended. Bowel sounds positive. Obese. Extremities: Peripheral pulses intact. Trace lower extremity edema bilaterally. No clubbing or cyanosis. Neurologic: Cranial nerves grossly intact. No focal deficits identified. Psychiatric: Normal mood and affect. Awake, alert, oriented x3. Skin: No new rashes or lesions identified. ASSESSMENT AND PLAN: 1. Atrial fibrillation with rapid ventricular response. Patient is status post cardioversion yesterday but went back into atrial fibrillation. Cardiology adjusted medications and plan on repeating cardioversion tomorrow. We will see how he does with that and proceed from there. 2. History of congestive heart failure. Patient with heart failure by history by last EF 55. His previous heart failure has improved. 3. Coronary artery disease, stable. 4. Benign prostatic hypertrophy, status post transurethral resection of the prostate. Continue current management. 5. Fatty liver. Minimal elevation in LFTs on admission with normal bilirubin. No need for further intervention at this time.
[2019-02-05] MEDS: AMBIEN PO SCH (20:23)
[2019-02-06] MEDS: PRILOSEC PO SCH (06:03)
[2019-02-06] MEDS: XARELTO PO SCH ×2 (07:48→11:33)
[2019-02-06] MEDS: BETAPACE PO SCH (07:48)
--- NOTE | 2019-02-06 07:52 | EKG Report ---
Test Performed on : 02/06/2019 06:23:05 AM Test Reason : afib Blood Pressure : / mmHG Vent. Rate : 087 BPM Atrial Rate : 416 BPM P-R Int : 000 ms QRS Dur : 084 ms QT Int : 366 ms P-R-T Axes : 000 059 053 degrees QTc Int : 440 ms Atrial fibrillation. Abnormal ECG When compared with ECG of 05-FEB-2019 07:00, (Unconfirmed) No significant change was found Confirmed by Viv MADDOX, Dung Juarez ([id number]) on 02/06/2019 9:44:29 AM
[2019-02-06] MEDS ORDERED: LANOXIN PO SCH (10:30)
[2019-02-06 11:24] VITALS: BP 126/80
--- NOTE | 2019-02-06 15:38 | DISCHARGE SUMMARY ---
ADMISSION DATE: 02/01/2019 DISCHARGE DATE: 02/06/2019 ADMISSION DIAGNOSIS: 1. Atrial fibrillation with rapid ventricular rate. 2. History of congestive heart failure with an ejection fraction of 50%. 3. Coronary artery disease. No chest pain. 4. Benign prostatic hypertrophy. Has had a history of TURP. DISCHARGE DIAGNOSIS: 1. Atrial fibrillation with rapid ventricular rate status post cardioversion that was unsuccessfully, medically it will be treated. 2. History of congestive heart failure, last ejection fraction now is currently 55%. 3. Coronary artery disease, stable. 4. Benign prostatic hypertrophy. History of TURP. 5. Fatty liver. Had minimal elevation of LFTs on admission but those are normal now. CONSULTATIONS: Pierre Hinton MD. SURGERIES OR PROCEDURES: On 02/04/2019, the patient underwent cardioversion for persistent atrial fibrillation. The cardioversion was initially successful, however quickly reconverted back to atrial fibrillation. So, medically managed with sotalol and Cardizem, and at the time they were going to reschedule the procedure for 48 hours later once the sotalol has worked but that was canceled. HOSPITAL COURSE: On 01/30/2019, Mr. George Kaufman a 73-year-old male presented to Dr. Montalvo, his primary's office I believe with complaints of palpitations and chest discomfort. He was found to be in atrial fibrillation at that time and was sent over to Dr. Hinton's office, who essentially then sent him to the ER due to the atrial fibrillation with RVR. 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 He was given digoxin, started on Cardizem, was already on Xarelto and Toprol, so Cardiology was consulted. At some point, he had an ultrasound of the abdomen because he also had elevated liver enzymes, which showed advanced hepatic steatosis, which liver enzymes resolved during his stay. So, EKG showed a rate of 121, atrial fibrillation with RVR. He had an echocardiogram, which actually showed the ejection fraction to be 60% to 65%, maybe some mild pulmonary hypertension with a systolic reading of 32 mmHg. He was in atrial fibrillation during the echocardiogram. He had a myocardial perfusion scan, did demonstrate a very small size mild intensity fixed defect in the mid inferior wall. Cardiology saw him and made some adjustments to his medications for rate control. Despite medications, he still had a rate in low 100s and so on the he had cardioversion that was initially successful but immediately reconverted back, so medically management was initiated with sotalol. There was an initial plan to reevaluate 48 hours later to cardiovert, but his rate became much more controlled with the sotalol so he is going to be discharged home with Toprol, digoxin, Xarelto, and apparently the sotalol was actually discontinued on the and apparently the sotalol was discontinued by Cardiology. He will go home today. DISCHARGE VITAL SIGNS: Temperature 97.6, heart rate 90, respiratory rate 17, blood pressure 141/84, O2 saturation 100% on room air. DISCHARGE LAB DATA: White blood cells 9000, hemoglobin 15, hematocrit 46, platelet count 238. Sodium 138, potassium 4.1, BUN 15, creatinine is 1.0, glucose 90, calcium 8.4. PERTINENT IMAGING: On 01/30/2019, chest x-ray: Mild cardiomegaly. On 01/31/2019, chest x-ray: Negative exam, and abdominal ultrasound: Advanced hepatic steatosis. On 01/31/2019, myocardial perfusion scan: Perfusion imaging seems to demonstrate a very small size mild intensity fixed defect of the mid inferior wall, but the wall motion was intact, so it suggested soft tissue attenuation, normal ejection fraction of 61%. On 01/31/2019, echocardiogram: EF 60% to 65%, pulmonary pressure 32 mmHg. EKG 01/30, his rate was 162, atrial fibrillation with RVR. On 01/31, atrial fibrillation with RVR, rate 121. On 02/04, rate 102, atrial fibrillation with RVR. Later on, it was atrial fibrillation with a rate of 83. 02/05: Atrial fibrillation with a rate of 94, and today on 02/06 atrial fibrillation with a rate of 87. DISCHARGE MEDICATIONS: 1. Ambien 12.5 mg p.o. nightly. 2. Digoxin 250 mcg p.o. daily. 3. Toprol XL 50 mg p.o. twice daily. 4. Xarelto 20 mg p.o. daily. DISCHARGE DIET: Heart healthy. DISCHARGE ACTIVITY: As tolerated. DISCHARGE FOLLOWUP: Dr. Hinton and Dr. Montalvo. DISCHARGE INSTRUCTIONS: If there is anymore palpitations, chest pressure, shortness of breath, to seek medical attention and to take all medications as prescribed to control heart rate or atrial fibrillation. DISCHARGE DISPOSITION: Home. Dictated by LAURA Simon for Vincent Mann MD cc: LAURA Simon Agree with the above. the following is my own face to face assessment. Patient remains in afib but with controlled rate on exam. asymptomatic. meds adjusted by cardiology and they plan to follow up with him in clinic on monday. MTDD
[2019-02-06] MEDS ORDERED: TOPROL XL PO SCH (21:00)
== END 2019-02-06 12:53 | disposition home or self-care (01) | DRG 309 ==
LOC: 3S 13:59 → ED 13:59 → SUATTDRO 22:38 → DIRADM 01-31 → 3S 01-31 00:10 → SUATTDRO 02-01 18:39
PROVIDERS: ATTEND Internal Medicine
CPT/HCPCS: 71010; 71045; 76705; 78452; 80048; 80053; 80061; 80162; 81001; 82550; 82607; 82746; 83735; 83880; 84100; 84439; 84443; 84484; 85025; 85610; 85730; 92960; 93005; 93010; 93017; 93306; 99285; A9270; A9500; C8929; J1160; J2785; J7030; Q9957

== ENCOUNTER 2019-05-13 10:47 | Day surgery (SDC) ==
--- NOTE | 2019-05-01 17:39 | EKG Report ---
Test Performed on : 05/01/2019 5:26:50 PM Test Reason : PAT Blood Pressure : / mmHG Vent. Rate : 079 BPM Atrial Rate : 326 BPM P-R Int : 000 ms QRS Dur : 080 ms QT Int : 348 ms P-R-T Axes : 000 058 006 degrees QTc Int : 399 ms Atrial fibrillation. Nonspecific ST abnormality Abnormal ECG When compared with ECG of 06-FEB-2019 06:23, Nonspecific T wave abnormality, improved in Inferior leads Confirmed by Flori Moses MD ([id number]) on 05/02/2019 12:10:56 PM
[2019-05-01 17:50] LABS: URINE SOURCE CLEAN CATCH
[2019-05-01 17:53] LABS: BASO# 0.05 X1000 (0.0-0.2); BASO% 0.4 % (0.0-0.8); EOS# 0.18 X1000 (0.0-0.7); EOS% 1.5 % (0.0-10.0); HEMATOCRIT 44.7 % (42.0-52.0); HEMOGLOBIN 14.5 g/dL (14.0-18.0); IMM GRAN# 0.05 X1000 (0.0-0.04); IMM GRAN% 0.4 % (0.0-0.5); LYMPH# 2.44 X1000 (1.2-3.4); LYMPH% 19.9 % (20.5-51.1); MCH 27.2 PG (27-31); MCHC 32.4 g/dL (33-37); MCV 83.7 FL (81-99); MONO# 0.83 X1000 (0.11-0.59); MONO% 6.8 % (1.7-9.3); MPV 10.1 FL (7.4-10.4); NEUT# 8.71 X1000 (1.4-6.5); PLT 271 X1000 (130-400); RBC 5.34 XMIL (4.7-6.1); RDW 15.8 % (11.5-14.5); WBC 12.26 X1000 (4.8-10.8)
[2019-05-01 17:54] LABS: BILIRUBIN URINE NEGATIVE (NEGATIVE); BLOOD URINE TRACE (NEGATIVE); COLOR YELLOW; GLUCOSE URINE NEGATIVE (NEGATIVE); KETONE URINE NEGATIVE (NEGATIVE); LEUKOCYTES URINE NEGATIVE (NEGATIVE); NITRITE URINE NEGATIVE (NEGATIVE); PH URINE 5.5; PROTEIN URINE NEGATIVE (NEGATIVE); SP GRAVITY URINE 1.011; TURBIDITY URINE CLEAR (CLEAR); UROBILINOGEN URINE 2 mg/dL (NORMAL)
[2019-05-01 17:56] LABS: UR EPITHELIAL CELLS <10 /HPF (<10); URINE BACTERIA NEGATIVE /HPF; URINE RBC <10 /HPF (<10); URINE WBC <10 /HPF (<10)
[2019-05-01 18:00] LABS: INR 2.33; PROTIME 26.2 Seconds (11.0-16.0)
[2019-05-01 18:01] LABS: PTT 44.2 Seconds (22.3-41.8)
[2019-05-01 18:18] LABS: AGAP 11; ALBUMIN 3.8 g/dL (3.5-5.0); BUN 12 mg/dL (8-22); CALCIUM 9.2 mg/dL (8.8-10.2); CHLORIDE 100 mmol/L (98-107); COSMO 274; CREATININE 1.1 mg/dL (0.7-1.2); ESTIMATED GFR > 60; GLUCOSE 106 mg/dL (70-104); POTASSIUM 4.1 mmol/L (3.5-5.1); SODIUM 137 mmol/L (136-145); TCO2 26 mmol/L (25-35)
[2019-05-13] MEDS ORDERED: PEPCID ONE (11:17)
[2019-05-13] MEDS ORDERED: LR 1,000 ML ONE (11:17)
[2019-05-13] MEDS ORDERED: KEFZOL 1 GM/D5W 2 GM/100 ML IVPB ONE (11:17)
[2019-05-13] MEDS ORDERED: COLACE ONE (11:17)
[2019-05-13] MEDS ORDERED: REGLAN ONE (11:17)
[2019-05-13] MEDS ORDERED: LYRICA ONE (11:17)
[2019-05-13 11:38] LABS: INR 1.06; PROTIME 13.9 Seconds (11.0-16.0)
[2019-05-13 11:39] LABS: PTT 29.6 Seconds (22.3-41.8)
[2019-05-13] MEDS ORDERED: TORADOL ONE (13:51)
[2019-05-13] MEDS ORDERED: SENSORCAINE 0.25%/EPI 1:200,000 ONE (13:51)
[2019-05-13] MEDS ORDERED: DURAMORPH ONE (13:51)
[2019-05-13] MEDS ORDERED: VANCOMYCIN ONE (13:51)
[2019-05-13] MEDS ORDERED: SODIUM CHLORIDE 0.9% ONE (13:52)
[2019-05-13] MEDS ORDERED: EXPAREL 1.3% ONE (13:52)
[2019-05-13] MEDS ORDERED: XYLOCAINE-MPF 2% ONE ×3 (13:52→14:31)
[2019-05-13] MEDS ORDERED: NEOSPORIN G.U. IRRIGANT ONE (13:52)
[2019-05-13] MEDS ORDERED: DIPRIVAN 1% ONE ×2 (13:53)
[2019-05-13] MEDS ORDERED: FENTANYL ONE (14:20)
[2019-05-13] MEDS ORDERED: VERSED ONE (14:20)
[2019-05-13] MEDS ORDERED: DECADRON ONE (15:00)
[2019-05-13] MEDS: CYKLOKAPRON 1,000 MG/NS 2,000 MG/200 ML IVPB ONE ×2 (15:00→16:14)
[2019-05-13] MEDS ORDERED: OFIRMEV 1000 MG/ISOTONIC SOLN 1,000 MG/100 ML BOTTLE ONE (15:00)
[2019-05-13] MEDS ORDERED: ZOFRAN ONE (15:09)
[2019-05-13] MEDS ORDERED: QUELICIN (DOSE) ONE (15:11)
[2019-05-13] MEDS ORDERED: DILAUDID ONE (15:30)
[2019-05-13] MEDS ORDERED: EPHEDRINE ONE (16:01)
[2019-05-13] MEDS ORDERED: NS 1,000 ML ONE (16:35)
[2019-05-13] MEDS ORDERED: ZOFRAN ODT PO PRN (18:00)
[2019-05-13] MEDS ORDERED: MILK OF MAGNESIA PO PRN (18:00)
[2019-05-13] MEDS ORDERED: MORPHINE IV PRN ×3 (18:00)
[2019-05-13] MEDS ORDERED: ZOFRAN IV PRN (18:00)
[2019-05-13] MEDS ORDERED: OXY IR PO PRN ×2 (18:00)
[2019-05-13] MEDS ORDERED: ZOLPIDEM TARTRATE 12.5 MG PO SCH (21:00)
[2019-05-13] MEDS ORDERED: AMBIEN PO SCH (21:00)
[2019-05-13] MEDS: NS 1,000 ML IV SCH (21:42)
[2019-05-13] MEDS: PERIDEX MT SCH (21:43)
[2019-05-13] MEDS: ULTRAM PO SCH (21:43)
[2019-05-13] MEDS: LYRICA PO SCH (21:44)
[2019-05-13] MEDS: TYLENOL PO SCH (21:44)
[2019-05-13] MEDS: COLACE PO SCH (21:45)
[2019-05-13] MEDS: KEFZOL 2 GM/D5W 2 GM/50 ML IVPB IV SCH (21:45)
--- NOTE | 2019-05-13 22:55 | OPERATIVE NOTE ---
PROCEDURE DATE: 05/13/2019 PREOPERATIVE DIAGNOSIS: Right knee degenerative joint disease. POSTOPERATIVE DIAGNOSIS: Right knee degenerative joint disease. PROCEDURE: Right total knee arthroplasty using [facility] [employer], a size 9 femoral component, size 9 tibial base plate, a 13 mm articular insert and a 38 mm patellar component. ANESTHESIA: Spinal. SURGEON: Kory Art MD. PATROL MOTHER: LAURA Smith. COMPLICATIONS: None. BLOOD LOSS: Minimal. TOURNIQUET TIME: Approximately an 1-1/2 hour. DESCRIPTION OF PROCEDURE: Patient brought to the operative suite and placed in supine position. After successful administration of general anesthesia, a well-padded tourniquet was placed on the right proximal thigh. Right lower extremity was prepped and draped in usual sterile fashion. Leg was exsanguinated. Tourniquet insufflated to 350 torr. A longitudinal incision was made beginning superior pole of the patella and extended distally to the tibia tuberosity. A medial arthrotomy was made. The medial capsule was elevated off the medial tibial plateau. The ACL, PCL, medial meniscus and lateral meniscus were excised. A drill was entered into the distal femur. Intramedullary guide was placed. The cutting block was pinned in place. Distal cuts made with an oscillating saw. Marginal osteophytes removed with rongeur. Attention was directed to the tibia. A drill was entered in the tibia. Intramedullary guide was placed. The line was checked with drop rebekah referencing off the anterior cortex tibia and the second ray of the foot and taking 4 mm off the low side the tibia which in this case was medially. The tibial cutting block was pinned in place and the articular surface of the tibial plateau was removed with an oscillating saw. Marginal osteophytes removed with rongeur. Extension gaps were checked and found to be tight medially. A medial release was performed then it was balanced well at 13 mm. Therefore, we set it to 22 mm to full flexion gap and then once the rotation was set, the femoral cutting block was pinned in place. Anterior cuts, chamfer cuts, and posterior condylar cuts were made with the oscillating saw. The box cutting block was pinned into place. Box cut was made with a box osteotome and oscillating saw. Posterior condyle osteophytes removed with a curved osteotome and rongeur. Attention was then directed to the tibia. The tibia sized to a size 9. A size 9 guide was used for the pin punch. The tibial trial, femoral trial and a 13 mm articular placed taken through range of motion found have excellent alignment, balancing range of motion. Attention was directed to the patella. Then, 9 mm of the articular surface patella removed with oscillating saw. The patella was sized to a size 38. A size 3 guide was used drill peg holes. Lateral facet was chamfered with 34 degrees. Patella trial was placed and taken through range of motion and found to have excellent patella tracking. All trials were then removed. The knee was copiously irrigated and dried, being certain all bone debris was removed. The tibial component, femoral component, and patellar component were cemented into place, excess cement being removed with a Dora. Once the cement hardened excess cement was again removed osteotome knee was again copiously irrigated and dried, being certain all bone and cement debris removed the trial articular insert was removed. The knee was copiously irrigated. The skin infiltrated with Exparel including posterior capsule, anterior capsule, medial and lateral collateral ligaments, intermuscular and subcutaneous tissue. A drain was placed exiting superior laterally and buried in the lateral gutter. The tourniquet was deflated. Hemostasis was obtained with electrocautery. The definitive 13 mm articular insert was locked into place. The knee was again copiously irrigated with normal saline containing irrigant and Vashe irrigation the medial arthrotomy was closed with #1 Vicryl. Skin edge approximated 2-0 Vicryl. Skin was closed with Prineo and a sterile dressing was applied. The patient tolerated the procedure well without complications. At the end of the procedure all counts were correct x2. The patient was transferred to the recovery room in stable condition. cc: Kory Art MD
[2019-05-14] MEDS: TYLENOL PO SCH ×2 (03:35→09:03)
[2019-05-14] MEDS: ULTRAM PO SCH ×2 (03:35→09:03)
[2019-05-14] MEDS: PRILOSEC PO SCH ×2 (05:54→06:29)
[2019-05-14] MEDS: KEFZOL 2 GM/D5W 2 GM/50 ML IVPB IV SCH (05:54)
[2019-05-14] MEDS ORDERED: XARELTO PO SCH (06:00)
[2019-05-14 06:21] LABS: HEMOGLOBIN 13.6 g/dL (14.0-18.0)
[2019-05-14 06:45] LABS: AGAP 11; BUN 12 mg/dL (8-22); CALCIUM 8.6 mg/dL (8.8-10.2); CHLORIDE 98 mmol/L (98-107); COSMO 274; CREATININE 0.9 mg/dL (0.7-1.2); ESTIMATED GFR > 60; GLUCOSE 233 mg/dL (70-104); POTASSIUM 4.9 mmol/L (3.5-5.1); SODIUM 133 mmol/L (136-145); TCO2 24 mmol/L (25-35)
[2019-05-14] MEDS ORDERED: TOPROL XL PO SCH (09:00)
[2019-05-14] MEDS ORDERED: LANOXIN PO SCH (09:00)
[2019-05-14] MEDS ORDERED: DECADRON IV ONE (09:00)
[2019-05-14] MEDS ORDERED: CARDIZEM CD PO SCH (09:00)
[2019-05-14] MEDS: COLACE PO SCH (09:03)
[2019-05-14] MEDS: LYRICA PO SCH (09:03)
[2019-05-14] MEDS: PERIDEX MT SCH (09:04)
[2019-05-14 10:02] LABS: URINE SOURCE CLEAN CATCH
[2019-05-14 10:03] LABS: BILIRUBIN URINE NEGATIVE (NEGATIVE); BLOOD URINE MODERATE (NEGATIVE); COLOR YELLOW; GLUCOSE URINE NEGATIVE (NEGATIVE); KETONE URINE NEGATIVE (NEGATIVE); LEUKOCYTES URINE NEGATIVE (NEGATIVE); NITRITE URINE NEGATIVE (NEGATIVE); PH URINE 5.5; PROTEIN URINE NEGATIVE (NEGATIVE); SP GRAVITY URINE 1.012; TURBIDITY URINE CLEAR (CLEAR); UROBILINOGEN URINE NORMAL (NORMAL)
[2019-05-14 10:04] LABS: UR EPITHELIAL CELLS <10 /HPF (<10); URINE BACTERIA NEGATIVE /HPF; URINE WBC <10 /HPF (<10)
[2019-05-14] MEDS: NS 1,000 ML IV SCH (10:31)
[2019-05-14 13:51] VITALS: BP 134/82
--- NOTE | 2019-05-15 03:16 | DISCHARGE SUMMARY ---
ADMISSION DATE: 05/13/2019 DISCHARGE DATE: 05/14/2019 DISCHARGE DIAGNOSIS: Right knee degenerative joint disease status post right total knee arthroplasty. DISCHARGE MEDICATIONS: See discharge med list. DISPOSITION: The patient is discharged home with home health physical therapy. Instructed to return for any signs or symptoms of infection or deep venous thrombosis. Instructed to return to see Dr. Art next for follow up exam. HOSPITAL COURSE: On the day of admission the patient underwent a right total knee arthroplasty. His postoperative course was unremarkable. At discharge he is afebrile, tolerating a regular diet, ambulating well with physical therapy. His wound is clean, dry and intact without any sign of infection. His hematocrit is stable at 40. His calf is soft without any sign of DVT. He is discharged home in stable condition with instructions to follow up as described above. cc: Kory Art MD
== END 2019-05-14 14:33 | disposition home or self-care (01) ==
LOC: OR 10:47 → 4N 10:47 → OR 05-14 14:33
PROVIDERS: ATTEND Orthopaedic Surgery